=== PATIENT | female | born 1985 | race African-American/Black ===

== ENCOUNTER 2019-06-28 15:04 | Emergency (ER) | payer OTHER, SELFPAY ==
--- NOTE | ~2019-06-28 | XR_ITS ---
XR hand RT min 3V 06/28/2019 15:20 INDICATION: Right hand pain. PROCEDURE: 3 views right hand COMPARISON: No prior studies for comparison. FINDINGS: Fracture, dislocation or subluxation is not identified. The soft tissues appear within norm al limits. No foreign bodies are identified. IMPRESSION: 1: NO ACUTE BONE OR JOINT ABNORMALITY IDENTIFIED. Reviewed, dictated and finalized at location A.
--- NOTE | 2019-06-28 15:11 | ED.UPPEXIN ---
HPI - Extremity Injury (Upper) General Chief Complaint: Extremity Injury, Upper Stated Complaint: Right Thumb injury Time Seen by Provider: 06/28/19 15:20 Source: patient and RN notes reviewed History of Present Illness HPI narrative: Patient is a 34-year-old female that presents the urgent care with complaints of right thumb/hand injury. Patient states that she was trying to jump out of the way of a car and slammed her right hand into her own car door, pulling it out without opening the door. Patient is anxious and erratic and is screaming in pain. Patient has not done anything for the pain prior to arrival. States that it just happened prior to her arrival. Denies of any other injuries or complaints. Patient aware of the plan of care. Related Data Allergies Allergy/AdvReac Type Severity Reaction Status Date / Time Sulfa (Sulfonamide Allergy Intermediate ORAL Verified 06/28/19 15:08 Antibiotics) Swelling AND ITCHING Review of Systems Review of Systems: Narrative: CONSTITUTIONAL: Denies fever, chills, or sweats. EYES: Denies visual changes, redness, or discharge. ENT: Denies rhinorrhea, congestion, sore throat, or otalgia. CARDIOVASCULAR: Denies chest pain, palpitations, or edema. RESPIRATORY: Denies cough or dyspnea. GASTROINTESTINAL: Denies abdominal pain, nausea, vomiting, or diarrhea. GENITOURINARY: Denies dysuria or hematuria. SKIN: Denies rash or itching. MUSCULOSKELETAL: Reports of right hand/thumb pain due to injury NEUROLOGIC: Denies headache, numbness, or weakness. All other systems reviewed are negative, except as documented in HPI. PMFSH Comments At the time of my signature, I reviewed and agree with the nursing past medical, surgical, social, and family history. There is no relevant family history pertinent to the patient complaint. Exam Narrative: Exam Narrative: GENERAL: This is a well-nourished, well-developed patient, in no apparent distress. HEAD: normocephalic, atraumatic. EYES: PERRL. Sclera clear/white. Vision is grossly intact. EARS: External ears normal NOSE: External nose normal with no obvious nasal discharge THROAT: Mucous membranes moist NECK: Neck supplegaly. CARDIOVASCULAR: Regular rate SKIN: Pinpoint abrasion noted to the cuticle of the right thumb without nail bed deformity. Warm, intact with no suspicious lesions or rash, good texture and turgor. NEURO: awake, alert, and oriented to person, place and time. There were no obvious focal neurologic abnormalities. EXTREMITIES: Mild edema and ecchymosis noted to the MCP of the right thumb without obvious deformity/dislocation. Capillary refill less than 2 seconds to right upper extremity with positive strong right radial pulse. Course Vital Signs Vital signs: Vital Signs Temperature 98.4 F 06/28/19 15:13 Pulse Rate 140 H 06/28/19 15:13 Respiratory Rate 24 H 06/28/19 15:13 Blood Pressure 141/86 H 06/28/19 15:13 Pulse Oximetry 100 06/28/19 15:13 Temperature 98.4 F 06/28/19 15:13 Pulse Rate 140 H 06/28/19 15:13 Respiratory Rate 24 H 06/28/19 15:13 Blood Pressure 141/86 H 06/28/19 15:13 Pulse Oximetry 100 06/28/19 15:13 Reviewed?patient is informed that they may have pre-hypertension or hypertension based on a blood pressure reading in the department. I recommend the patient call the primary care provider listed on their discharge instructions or a physician of their choice this week to arrange follow-up for further evaluation of possible pre-hypertension or hypertension. MDM - Extremity Injury (Upper) MDM Narrative Medical decision making narrative: Reviewed x-ray result with the patient. She is aware the x-ray shows no abnormality such as fracture or dislocation. Advised patient to use ibuprofen as needed for pain. Elevate the hand and use ice for comfort. May use Dmitriy wrap for comfort as well. Try to avoid heavy lifting, pushing, pulling, or repetitive motion of the hand. In order to get any restrict
[2019-06-28 15:13] VITALS: BP 141/86; PULSE 140; RESP 24; TEMP 36.9; O2SAT 100
== END 2019-06-28 15:38 | disposition home or self-care (01) ==
PROVIDERS: Emergency Provider Nurse Practitioner Family
DX: S60.011A Contusion of right thumb without damage to nail, initial encounter (principal); S60.221A Contusion of right hand, initial encounter; W23.0XXA Caught, crushed, jammed, or pinched between moving objects, initial encounter; R03.0 Elevated blood-pressure reading, without diagnosis of hypertension
CPT/HCPCS: 73130; 99213; G0463